=== PATIENT | male | born 1960 | race Caucasian/White ===

== ENCOUNTER 2023-08-08 15:40 | Inpatient (IN) | payer BC, MEDICARE ==
[~2023-08-08] VITALS: Ht 165.1 cm; Wt 78.0 kg
[2023-08-08 16:03] LABS: BASOPHILS % (AUTO) 0.3 % (0-1); EOSINOPHILS # (AUTO) 0.4 X10'3 (0-0.9); EOSINOPHILS % (AUTO) 3.6 % (0-6); HEMATOCRIT 39.4 % (42.0-52.0); HEMOGLOBIN 13.1 g/dl (14.0-17.9); LYMPHOCYTES % (AUTO) 23.7 % (21-51); MEAN CORPUSCULAR HEMOGLOBIN 29.6 PG (27.0-31.0); MEAN CORPUSCULAR HGB CONC 33.2 g/dL (33.0-36.5); MEAN CORPUSCULAR VOLUME 89.1 FL (78-98); MEAN PLATELET VOLUME 9.4 FL (7.4-10.4); MONOCYTES # (AUTO) 1.1 X10'3 (0-0.9); MONOCYTES % (AUTO) 8.8 % (2-12); NEUTROPHILS % (AUTO) 63.6 % (42-75); PLATELET COUNT 192 X10'3 (140-440); RED BLOOD COUNT 4.42 X10'6 (4.70-6.10); RED CELL DISTRIBUTION WIDTH 13.6 % (11.5-14.5); WHITE BLOOD COUNT 12.6 X10'3 (4.5-11.0)
[2023-08-08 16:30] LABS: ALANINE AMINOTRANSFERASE 31 U/L (12-78); ALBUMIN 4.2 G/DL (3.4-5.0); ALBUMIN/GLOBULIN RATIO 1.2 (1.1-1.5); ALKALINE PHOSPHATASE 66 IU/L (46-116); ANION GAP 15 (8-16); ASPARTATE AMINO TRANSFERASE 16 U/L (10-37); BILIRUBIN,TOTAL 0.4 MG/DL (0.1-1.0); BLOOD UREA NITROGEN 59 MG/DL (7-18); BUN/CREATININE RATIO 16.1 (10.0-20.0); CALCIUM 9.6 MG/DL (8.5-10.1); CHLORIDE 109 MMOL/L (99-107); CREATININE 3.67 MG/DL (0.60-1.10); GLUCOSE 114 MG/DL (70-104); POTASSIUM 4.9 MMOL/L (3.5-5.1); SODIUM 143 MMOL/L (135-145); TOTAL CARBON DIOXIDE 18.9 MMOL/L (24-32); TOTAL PROTEIN 7.8 G/DL (6.4-8.2); eCRCL 17 ML/MIN; eGFR 17 ML/MIN
[2023-08-08 16:37] LABS: PRO BRAIN NATRIURETIC PEPTIDE 32 PG/ML (0-125)
[2023-08-08] MEDS: normal saline 1000ML IV soln IVB ONE (19:04)
[2023-08-08] MEDS ORDERED: ondansetron/PF 4mg/2ml inj IV PRN (20:10)
[2023-08-08] MEDS ORDERED: magnesium hydroxide 30ml (MOM) UD suspension PO PRN (20:10)
[2023-08-08] MEDS ORDERED: potassium Cl 20 mEq SR tablet PO PRN ×2 (20:10)
[2023-08-08] MEDS ORDERED: magnesium 2GM in 50ml NS 50 ML IV PRN (20:10)
[2023-08-08] MEDS ORDERED: magnesium 4gm in 100ml NS 100 ML IV PRN (20:10)
[2023-08-08] MEDS ORDERED: potassium Cl 40MEQ/1/2NS 520ml 520 ML IV PRN (20:10)
[2023-08-08] MEDS ORDERED: mag hydrox/Alum hydrox/simeth 30ml oral suspension PO PRN (20:10)
[2023-08-08] MEDS ORDERED: acetaminophen 325mg tablet PO PRN ×2 (20:10)
[2023-08-08 21:05] LABS: BILIRUBIN,URINE NEGATIVE (Neg); CLARITY,URINE CLEAR (Clear); COLOR,URINE YELLOW (Yellow); GLUCOSE, URINE NEGATIVE (Neg); KETONES,URINE NEGATIVE (Neg); LEUKOCYTE ESTERASE ,URINE NEGATIVE (Neg); NITRITES, URINE NEGATIVE (Neg); OCCULT BLOOD,URINE TRACE-INTACT (Neg); PROTEIN,URINE NEGATIVE (Neg); UA COLLECTION TYPE URINAL; UROBILINOGEN,URINE 0.2 E.U/dL (0.2-1.0)
[2023-08-08] MEDS: normal saline 1000ml 1,000 ML IV SCH (21:17)
[2023-08-08 21:18] LABS: BACTERIA,URINE FEW /HPF (Neg); MUCUS STRANDS FEW /LPF (Neg); SQUAMOUS EPITHELIAL CELL,UR FEW /LPF (FEW); WBC,URINE 0-4 /HPF (0-4)
[2023-08-08] MEDS: LORazepam 2 mg/ml vial IV PRN (21:18)
[2023-08-08] MEDS: pregabalin 75mg capsule PO SCH (21:18)
[2023-08-08 21:19] LABS: HYALINE CASTS 0-3 /LPF (NEGATIVE)
[2023-08-08 21:24] LABS: URINE AMPHETAMINE SCREEN NEGATIVE (Neg); URINE BARBITUATE SCREEN NEGATIVE (Neg); URINE BENZODIAZEPINES SCREEN NEGATIVE (Neg); URINE CANNABINOID SCREEN NEGATIVE (Neg); URINE COCAINE SCREEN NEGATIVE (Neg); URINE METHADONE SCREEN NEGATIVE (Neg); URINE OPIATE SCREEN NEGATIVE (Neg); URINE PHENCYCLIDINE SCREEN NEGATIVE (Neg)
[2023-08-08 23:00] VITALS: BP 112/74; PULSE 76; RESP 22; TEMP 97.7; O2SAT 98
[2023-08-08] MEDS: ringers solution, lacted 1,000 ML IV ONE (23:35)
[2023-08-08] MEDS: HYDROcodone/acetaminophen 5mg/325mg tablet PO PRN (23:45)
[2023-08-09] VITALS (9 sets, daily range): BP systolic 97–138; BP diastolic 66–79; PULSE 60–73; RESP 13–18; TEMP 97–98; O2SAT 97–99
[2023-08-09] MEDS: ringers solution, lacted 1,000 ML IV SCH (01:09)
[2023-08-09 05:16] LABS: HEMOGLOBIN 10.8 g/dl (14.0-17.9)
[2023-08-09 05:19] LABS: BASOPHILS % (AUTO) 0.4 % (0-1); EOSINOPHILS # (AUTO) 0.7 X10'3 (0-0.9); EOSINOPHILS % (AUTO) 7.2 % (0-6); LYMPHOCYTES # (AUTO) 4.1 X10'3 (1.1-4.8); LYMPHOCYTES % (AUTO) 40.5 % (21-51); MEAN CORPUSCULAR HGB CONC 33.7 g/dL (33.0-36.5); MEAN CORPUSCULAR VOLUME 88.9 FL (78-98); MEAN PLATELET VOLUME 9.3 FL (7.4-10.4); MONOCYTES % (AUTO) 10.2 % (2-12); NEUTROPHILS # (AUTO) 4.2 X10'3 (1.8-7.7); NEUTROPHILS % (AUTO) 41.7 % (42-75); PLATELET COUNT 128 X10'3 (140-440); RED CELL DISTRIBUTION WIDTH 13.8 % (11.5-14.5)
[2023-08-09 05:25] LABS: APTT 28 SECONDS (22-32); PROTHROMBIN TIME 10.4 SECONDS (9.0-12.0)
[2023-08-09 05:33] LABS: ALANINE AMINOTRANSFERASE 23 U/L (12-78); ALBUMIN/GLOBULIN RATIO 1.1 (1.1-1.5); ALKALINE PHOSPHATASE 56 IU/L (46-116); ANION GAP 11 (8-16); ASPARTATE AMINO TRANSFERASE 14 U/L (10-37); BILIRUBIN,TOTAL 0.2 MG/DL (0.1-1.0); BLOOD UREA NITROGEN 56 MG/DL (7-18); BUN/CREATININE RATIO 19.2 (10.0-20.0); CALCIUM 8.4 MG/DL (8.5-10.1); CHLORIDE 113 MMOL/L (99-107); CHOL/HDL RATIO 2.9 (0.00-4.99); CHOLESTEROL 92 MG/DL (0-200); CREATININE 2.92 MG/DL (0.60-1.10); GLUCOSE 130 MG/DL (70-104); HDL CHOLESTEROL 32 MG/DL (35-60); LDL CHOLESTEROL 44 MG/DL (50-100); MAGNESIUM 1.8 MG/DL (1.5-2.4); PHOSPHORUS 4.1 MG/DL (2.3-4.5); POTASSIUM 4.2 MMOL/L (3.5-5.1); SODIUM 141 MMOL/L (135-145); TOTAL PROTEIN 5.7 G/DL (6.4-8.2); TRIGLYCERIDES 161 MG/DL (20-135); eCRCL 22 ML/MIN; eGFR 22 ML/MIN
[2023-08-09 06:01] LABS: HEMOGLOBIN A1C 6.6 % (4.5-6.2)
[2023-08-09] MEDS: heparin, porcine 5000 units/ml vial SQ SCH (07:36)
[2023-08-09] MEDS: K and/or MAG REPLACEMENT MC SCH (08:00)
[2023-08-09] MEDS: normal saline 1000ml 1,000 ML IV SCH (14:47)
[2023-08-09] MEDS: polyvinyl alcohol eye drops 15ML BOTTLE EACHEYE PRN (14:56)
[2023-08-09] MEDS ORDERED: PREG50CA65 PO (16:01)
[2023-08-09] MEDS ORDERED: AMLO2.5T2 PO (16:01)
[2023-08-09] MEDS ORDERED: SITA25TA3 PO (16:01)
[2023-08-09] MEDS ORDERED: ROSU20TA73 PO (16:01)
[2023-08-09] MEDS ORDERED: LISI20TA28 PO (16:05)
[2023-08-09] MEDS ORDERED: amLODIPine 2.5mg tablet PO SCH (17:20)
[2023-08-09] MEDS: lisinopril 20mg tablet PO SCH (17:20)
[2023-08-09] MEDS ORDERED: amLODIPine 5mg tablet PO SCH (17:22)
[2023-08-09] MEDS: atorvastatin 20mg tablet PO SCH (20:07)
[2023-08-09] MEDS: amLODIPine 5mg tablet PO SCH (20:07)
[2023-08-09] MEDS: HYDROcodone/acetaminophen 10/325mg tab PO PRN (20:49)
[2023-08-10] VITALS (7 sets, daily range): BP systolic 108–137; BP diastolic 70–82; PULSE 68–87; RESP 16–22; TEMP 97.5–98.6; O2SAT 97–98
[2023-08-10 06:02] LABS: BASOPHILS % (AUTO) 0.1 % (0-1); EOSINOPHILS # (AUTO) 0.5 X10'3 (0-0.9); EOSINOPHILS % (AUTO) 3.9 % (0-6); HEMATOCRIT 34.3 % (42.0-52.0); HEMOGLOBIN 11.6 g/dl (14.0-17.9); LYMPHOCYTES # (AUTO) 1.5 X10'3 (1.1-4.8); LYMPHOCYTES % (AUTO) 11.9 % (21-51); MEAN CORPUSCULAR HEMOGLOBIN 29.6 PG (27.0-31.0); MEAN CORPUSCULAR HGB CONC 33.9 g/dL (33.0-36.5); MEAN CORPUSCULAR VOLUME 87.5 FL (78-98); MEAN PLATELET VOLUME 9.4 FL (7.4-10.4); MONOCYTES # (AUTO) 1.5 X10'3 (0-0.9); MONOCYTES % (AUTO) 11.4 % (2-12); NEUTROPHILS # (AUTO) 9.5 X10'3 (1.8-7.7); NEUTROPHILS % (AUTO) 72.7 % (42-75); PLATELET COUNT 143 X10'3 (140-440); RED BLOOD COUNT 3.92 X10'6 (4.70-6.10); RED CELL DISTRIBUTION WIDTH 13.6 % (11.5-14.5)
[2023-08-10 06:04] LABS: APTT 26 SECONDS (22-32); PROTHROMBIN TIME 10.4 SECONDS (9.0-12.0)
[2023-08-10 06:15] LABS: ALANINE AMINOTRANSFERASE 23 U/L (12-78); ALBUMIN 3.2 G/DL (3.4-5.0); ALBUMIN/GLOBULIN RATIO 1.1 (1.1-1.5); ALKALINE PHOSPHATASE 57 IU/L (46-116); ANION GAP 6 (8-16); ASPARTATE AMINO TRANSFERASE 13 U/L (10-37); BILIRUBIN,TOTAL 0.4 MG/DL (0.1-1.0); BLOOD UREA NITROGEN 42 MG/DL (7-18); BUN/CREATININE RATIO 21.9 (10.0-20.0); CALCIUM 8.5 MG/DL (8.5-10.1); CHLORIDE 112 MMOL/L (99-107); CREATININE 1.92 MG/DL (0.60-1.10); GLUCOSE 114 MG/DL (70-104); MAGNESIUM 1.4 MG/DL (1.5-2.4); PHOSPHORUS 3.4 MG/DL (2.3-4.5); POTASSIUM 5.2 MMOL/L (3.5-5.1); SODIUM 143 MMOL/L (135-145); TOTAL CARBON DIOXIDE 25.4 MMOL/L (24-32); TOTAL PROTEIN 6.1 G/DL (6.4-8.2); eCRCL 33 ML/MIN; eGFR 35 ML/MIN
[2023-08-10] MEDS: linagliptin 5mg tablet PO SCH (08:42)
[2023-08-10] MEDS: pregabalin 25mg capsule PO SCH (08:43)
[2023-08-10] MEDS: diazepam 5mg tablet PO ONE (09:09)
[2023-08-10] MEDS: diazepam 2mg tablet PO PRN (21:55)
[2023-08-10] MEDS: magnesium Cl slow-release 64mg tablet PO PRN (23:30)
[2023-08-11 02:00] VITALS: BP 112/75; PULSE 94; RESP 22; TEMP 98.9; O2SAT 97
[2023-08-11 05:45] LABS: BASOPHILS % (AUTO) 0.1 % (0-1); EOSINOPHILS # (AUTO) 0.3 X10'3 (0-0.9); EOSINOPHILS % (AUTO) 3.9 % (0-6); HEMATOCRIT 34.4 % (42.0-52.0); HEMOGLOBIN 11.5 g/dl (14.0-17.9); LYMPHOCYTES # (AUTO) 2.9 X10'3 (1.1-4.8); LYMPHOCYTES % (AUTO) 33.2 % (21-51); MEAN CORPUSCULAR HEMOGLOBIN 29.6 PG (27.0-31.0); MEAN CORPUSCULAR HGB CONC 33.5 g/dL (33.0-36.5); MEAN CORPUSCULAR VOLUME 88.2 FL (78-98); MEAN PLATELET VOLUME 9.5 FL (7.4-10.4); MONOCYTES # (AUTO) 0.9 X10'3 (0-0.9); MONOCYTES % (AUTO) 10.8 % (2-12); NEUTROPHILS # (AUTO) 4.5 X10'3 (1.8-7.7); PLATELET COUNT 150 X10'3 (140-440); RED CELL DISTRIBUTION WIDTH 13.6 % (11.5-14.5); WHITE BLOOD COUNT 8.7 X10'3 (4.5-11.0)
[2023-08-11 06:05] LABS: APTT 30 SECONDS (22-32); PROTHROMBIN TIME 10.2 SECONDS (9.0-12.0)
[2023-08-11 06:42] LABS: ALANINE AMINOTRANSFERASE 21 U/L (12-78); ALBUMIN 3.1 G/DL (3.4-5.0); ALKALINE PHOSPHATASE 56 IU/L (46-116); ANION GAP 11 (8-16); ASPARTATE AMINO TRANSFERASE 15 U/L (10-37); BILIRUBIN,TOTAL 0.6 MG/DL (0.1-1.0); BLOOD UREA NITROGEN 34 MG/DL (7-18); BUN/CREATININE RATIO 21.9 (10.0-20.0); CALCIUM 8.8 MG/DL (8.5-10.1); CHLORIDE 111 MMOL/L (99-107); CREATININE 1.55 MG/DL (0.60-1.10); GLUCOSE 104 MG/DL (70-104); MAGNESIUM 1.5 MG/DL (1.5-2.4); PHOSPHORUS 2.9 MG/DL (2.3-4.5); POTASSIUM 4.6 MMOL/L (3.5-5.1); SODIUM 141 MMOL/L (135-145); TOTAL CARBON DIOXIDE 19.4 MMOL/L (24-32); TOTAL PROTEIN 6.2 G/DL (6.4-8.2); eCRCL 41 ML/MIN; eGFR 45 ML/MIN
[2023-08-11 07:51] VITALS: BP_SYST 127; PULSE 70
[2023-08-11 08:00] VITALS: RESP 14; O2SAT 97
[2023-08-11] MEDS ORDERED: DIAZ2TAB3 PO (12:45)
== END 2023-08-11 12:45 | disposition home or self-care (01) | DRG 640 ==
LOC: ER 15:41 → ED HOLD 20:10 → UNDOADMIN 20:10 → ED HOLD 20:14 → EDBEDREQ 20:41 → PCU 3S 22:45 → ED HOLD 22:45
PROVIDERS: ADMIT Internal Medicine Pulmonary Disease; ATTEND Internal Medicine
DX: E86.0 Dehydration (principal); N17.0 Acute kidney failure with tubular necrosis; E11.42 Type 2 diabetes mellitus with diabetic polyneuropathy; I10 Essential (primary) hypertension; E78.5 Hyperlipidemia, unspecified; R23.4 Changes in skin texture; I71.20 Thoracic aortic aneurysm, without rupture, unspecified; E87.5 Hyperkalemia; M47.812 Spondylosis without myelopathy or radiculopathy, cervical region; R27.0 Ataxia, unspecified; E87.20 Acidosis, unspecified; Z98.1 Arthrodesis status; Z79.84 Long term (current) use of oral hypoglycemic drugs
CPT/HCPCS: 36415; 70450; 70544; 70551; 71045; 80053; 80061; 80305; 81001; 82948; 83036; 83605; 83735; 83880; 84100; 84484; 85025; 85610; 85730; 87081; 93005; 93306; 93880; 99285; A6446; A6449; G0378; J1644; J2060; J7030; J7120

== ENCOUNTER 2024-02-22 16:01 | Emergency (ER) | payer MEDICARE, MEDICAID ==
[~2024-02-22] VITALS: Ht 165.1 cm; Wt 72.7 kg
[~2024-02-22 16:01] MED LIST: AMLO2.5T2 PO; DIAZ2TAB3 PO; LISI20TA28 PO; PREG50CA65 PO; ROSU20TA98 PO; SITA25TA3 PO
[2024-02-22 16:19] VITALS: TEMP 98
[2024-02-22 20:39] VITALS: BP 152/99; PULSE 67; RESP 17; O2SAT 98
== END 2024-02-22 20:54 | disposition home or self-care (01) ==
LOC: ER 16:01
DX: M25.562 Pain in left knee (principal); Z79.899 Other long term (current) drug therapy; X58.XXXA Exposure to other specified factors, initial encounter; Y93.01 Activity, walking, marching and hiking; Y92.89 Other specified places as the place of occurrence of the external cause; Y99.8 Other external cause status
CPT/HCPCS: 73560; 99284